=== PATIENT | male | born 1960 | race Caucasian/White ===

== ENCOUNTER 2019-06-29 12:44 | Emergency (ER) | payer OTHER ==
[~2019-06-29] VITALS: Ht 175.3 cm; Wt 78.9 kg
[2019-06-29 12:55] VITALS: BP 179/102
[2019-06-29] MEDS ORDERED: VANCOMYCIN 1,000 MG VIAL ONE (13:21)
[2019-06-29] MEDS: VANCOMYCIN 1,000 MG in DEXTROSE 5% 250 ML IV ONE (13:25)
[2019-06-29] MEDS ORDERED: LIDOCAINE MPF 1% - 5 mL VIAL 5 ML ONE ×2 (14:09→14:11)
[2019-06-29] MEDS: LIDOCAINE 1% 500 MG/50 ML VIAL INJ SCH (14:55)
[2019-06-29 15:27] VITALS: BP 152/95
== END 2019-06-29 15:27 | disposition home or self-care (01) ==
LOC: MED 12:44
DX: L02.414 Cutaneous abscess of left upper limb (principal)
CPT/HCPCS: 10060; 36415; 87040; 87070; 87186; 96365; 96366; 99283; J2001; J3370; J7060

== ENCOUNTER 2019-07-01 14:29 | Emergency (ER) | payer OTHER ==
[~2019-07-01] VITALS: Ht 175.3 cm; Wt 78.6 kg
[2019-07-01 14:44] VITALS: BP 169/94
--- NOTE | 2019-07-01 15:10 | NUR ---
59 Y MALE PT SEEN HERE 2 DAYS AGO FOR I&D FOR ABCESS TO PTS L UPPER ARM AND TOLD TO RETURN IN 2 DAYS. PT DENIES PAIN AT THIS TIME. SITE APPEARS TO BE HEALING PROPERLY. DENIES FEVER, CHILLS, DISCHARGE. BED IS DOWN, LOCKED, BED RAIL X 1, ERMD TO SEE PT. MEDHX:DENIES RX:ABX
--- NOTE | 2019-07-01 15:12 | NUR ---
NEELAM CAMEJO AT BEDSIDE
--- NOTE | 2019-07-01 15:48 | NUR ---
Patient discharged with v/s stable. Written and verbal after care instructions given and explained. Patient verbalized understanding. Ambulatory with steady gait. All questions addressed prior to discharge. Advised to follow up with PMD.
[2019-07-01 15:50] VITALS: BP 126/76
== END 2019-07-01 15:48 | disposition home or self-care (01) ==
LOC: MED 14:29
DX: L98.8 Other specified disorders of the skin and subcutaneous tissue (principal); M79.622 Pain in left upper arm; Z98.890 Other specified postprocedural states
CPT/HCPCS: 99283